=== PATIENT | male | born 1960 | race Caucasian/White ===

== ENCOUNTER 2025-03-17 15:45 | Emergency (ER) | payer OTHER ==
[~2025-03-17] VITALS: Ht 167.6 cm; Wt 72.6 kg
[2025-03-17] MEDS ORDERED: AMLO-212 PO (16:10)
[2025-03-17] MEDS ORDERED: PRAV20TA4 PO (16:17)
[2025-03-17] MEDS ORDERED: VALS1TAB4 PO (16:17)
[2025-03-17] MEDS ORDERED: AMLO10TA59 PO (16:17)
[2025-03-17 17:03] VITALS: BP 126/64; O2SAT 98
== END 2025-03-17 17:06 | disposition home or self-care (01) ==
LOC: ER 16:03
DX: S01.111A Laceration without foreign body of right eyelid and periocular area, initial encounter (principal); E78.5 Hyperlipidemia, unspecified; I10 Essential (primary) hypertension; Z79.899 Other long term (current) drug therapy; W26.8XXA Contact with other sharp object(s), not elsewhere classified, initial encounter; Y93.44 Activity, trampolining; Y92.89 Other specified places as the place of occurrence of the external cause; Y99.8 Other external cause status
CPT/HCPCS: A4606; A4663